=== PATIENT | male | born 1950 | race Native Hawaiian/Other Pacific Islander ===

== ENCOUNTER → 2017-04-29 | Outpatient (CLI) | payer OTHER ==
[~2017-04-29] MED LIST: ASPI-516 CHEW; BENA20TA PO; CITA40TA4 PO; DOXA1TAB34 PO; DULO1CAP PO; GABA600T PO; HYDR-3535 PO; MELO15TA20 PO; METF500T PO; MISO100T PO; NAPR500T2 PO; PIRO20CA PO; ROBA750T PO; SIMV80TA PO; TRAM50TA PO
--- NOTE | 2017-04-29 12:06 | EKG ---
Date Performed: 04/29/2017 Time Performed: 09:39:08 PTAGE: 66 years EKG: Sinus rhythm . rSr'(V1) - probable normal variant Normal ECG PREVIOUS TRACING : 03/19/2016 16.39 No significant change from previous tracing noted. DOCTOR: Jose G David Interpretating Date/Time 04/29/2017 12:04:46
== END ==
LOC: HCAV 09:30
DX: Z01.818 Encounter for other preprocedural examination (principal)
CPT/HCPCS: 93005